=== PATIENT | male | born 1985 | race Caucasian/White ===

== ENCOUNTER 2021-07-21 11:18 | Emergency (ER) | payer MEDICAID ==
[~2021-07-21] VITALS: Ht 182.9 cm; Wt 122.7 kg
[2021-07-21 11:21] VITALS: BP 130/73
== END 2021-07-21 12:34 | disposition home or self-care (01) ==
LOC: EMS 11:18
DX: R46.89 Other symptoms and signs involving appearance and behavior (principal)
CPT/HCPCS: 99281; Z7502